=== PATIENT | female | born 1960 | race Caucasian/White ===

== ENCOUNTER → 2016-07-12 | Outpatient (CLI) | payer BC, OTHER ==
[~2016-07-12] VITALS: Ht 162.6 cm; Wt 85.1 kg
[~2016-07-12] MED LIST: ABILIFY 5 MG TAB5 MG PO; ADDERALL XR 2020 MG PO; DEXILANT60 MG PO; DEXTROAMP-AMPHE30 MG PO; ESTRACE1 MG PO; FEMRING1 EACH VG; HYDROCODONE-APA1 TA1 PO; LEVOTHYROXIN0.112 M1 PO; NAPROSYN500 MG PO; PROZAC20 MG PO; REQUIP 1 MG TABL1 M1 PO; TRAMADOL 50 MG50 MG PO; TRAZODONE HCL100 MG PO; TRICOR145 MG PO; ZOFRAN ODT4 MG DISSOLVE; ZOMIG5 MG PO
--- NOTE | ~2016-07-12 | HPC ---
[facility] [address] [place] [address] PAIN MANAGEMENT CONSULTATION Name: LUANA JORDAN Room #: REG HETAL Mariia#: [id number] Admission: 07/12/16 Attend Phys: Obie Spencer DO Discharge: Date of : 62 Report #: [id number] THIS REPORT FOR: //name// CC: Sebastian Spencer DATE OF SERVICE: 07/12/2016 The patient is a very pleasant 55-year-old female, prior seen in consultation of 10/27/2015. She was given a single epidural injection L5-S1 with near 100% relief for about 6 months. The patient notes back and left leg pain has recurred without antecedent trauma and overuse. Pain is in the posterior thigh down to the foot. Pain is exacerbated with standing, bending and walking. PHYSICAL EXAMINATION: Shows pleasant 55-year-old female. Vital signs stable as noted in the EMR. Rises from chair using armrest. Modestly antalgic gait favoring the left leg. Positive straight leg raise on the left with decreased plantar flexion and lower extremity extension strength. ASSESSMENT: Symptomatic lumbar radiculopathy in a patient with prior history of gastroesophageal reflux, anxiety and depression. She has tolerated Naprosyn well in the past. I have elected to renew prescription for Naprosyn 500 mg b.i.d. We will do a short course of hydrocodone 7.5/325, limit 45 tablets. RECOMMENDATIONS: Fluoroscopic guided epidural injection L5-S1. Follow up simply as needed. PROCEDURE: Lumbar epidural injection under fluoroscopy. ASSESSMENT: Symptomatic lumbar radiculopathy. PROCEDURE: Lumbar epidural steroid injection. PROCEDURE NOTE: After both written and informed consent to include risk of spinal cord damage, increased pain, weakness and dural puncture, the patient was taken to the fluoroscopy suite, placed in the prone position. After sterile prep and drape, a skin wheal with lidocaine was raised. A 22-gauge epidural Tuohy needle was inserted in the midline at L5-S1 with good loss to resistance. Negative aspiration for cerebrospinal fluid or blood was noted. Then 1 mL of Omnipaque under biplanar fluoroscopy showed good spread within the epidural space. This was followed with 80 mg of triamcinolone plus 1 mL of 1.5% preservative-free Xylocaine, 0.5 mL Xylocaine was then injected to flush the [address] [address] PAIN MANAGEMENT CONSULTATION Name: NIKKI JORDANODY Room #: REG [facility] Mariia#: [id number] Admission: 07/12/16 Attend Phys: Obie Spencer DO Discharge: Date of : 62 Report #: [id number] needle; it was removed. The patient was monitored for an appropriate period of time and discharged in good and stable condition. <ELECTRONICALLY SIGNED> By: Obie Spencer DO 07/13/16 0904 1202 1330 Obie Spencer DO /nt
[2016-07-12 11:06] VITALS: BP 122/81
== END | disposition home or self-care (01) ==
LOC: PAIN 07:16
DX: M54.16 Radiculopathy, lumbar region (principal); K21.9 Gastro-esophageal reflux disease without esophagitis; F41.9 Anxiety disorder, unspecified; F32.9 Major depressive disorder, single episode, unspecified

== ENCOUNTER → 2016-11-01 | Outpatient (CLI) | payer BC, OTHER ==
[~2016-11-01] VITALS: Ht 162.6 cm; Wt 82.0 kg
--- NOTE | ~2016-11-01 | HPC ---
[facility] [place] [address] [place] [address] PAIN MANAGEMENT CONSULTATION Name: LUANA JORDAN Room #: REG ANGELOYimi Valencia.#: [id number] Admission: 11/01/16 Attend Phys: Obie Spencer DO Discharge: Date of : 62 Report #: [id number] THIS REPORT FOR: //name// CC: Greg Spencer The patient is a 55-year-old female, prior seen in the pain clinic back in June for symptomatic lumbar radiculopathy, had L5-S1 epidural injection with dramatic improvement in baseline pain, in fact, the patient notes she had 90% relief for 3 months, pain has begun to recur. Pain is primarily low back, pressure, aching with pain exacerbated with standing, walking and carrying her grandchildren. PHYSICAL EXAMINATION: Shows a 55-year-old female, BMI is 31 kilograms per meter squared. Vital signs stable as noted in the EMR. Rises from chair using armrest. Modestly antalgic gait. Diffuse tenderness across the low back, posterior thighs. Positive straight leg raise bilaterally. ASSESSMENT: Symptomatic lumbar radiculopathy by clinical exam and history. RECOMMENDATION: 1. Hydrocodone 7.5/325, prescription renewed. Dispensed 45 tablets 1 q. 4-6 hours as needed for pain. 2. Lumbar epidural injection under fluoroscopy. PROCEDURE: Lumbar epidural steroid injection. PROCEDURE NOTE: After both written and informed consent to include risk of spinal cord damage, increased pain, weakness and dural puncture, the patient was taken to the fluoroscopy suite, placed in the prone position. After sterile prep and drape, a skin wheal with lidocaine was raised. A 22-gauge epidural Tuohy needle was inserted in the midline at L5-S1 with good loss to resistance. Negative aspiration for cerebrospinal fluid or blood was noted. Then 1 mL of Omnipaque under biplanar fluoroscopy showed good spread within the epidural space. This was followed with 80 mg of triamcinolone plus 1 mL of 1.5% preservative-free Xylocaine, 0.5 mL Xylocaine was then injected to flush the needle; it was removed. The patient was monitored for an appropriate period of time and discharged in good and stable condition. <ELECTRONICALLY SIGNED> By: Obie Spencer DO 11/02/16 0837 [id number] [id number] Obie Spencer DO /nt
[2016-11-01 10:31] VITALS: BP 101/70
== END | disposition home or self-care (01) ==
LOC: PAIN 07:13
DX: M54.16 Radiculopathy, lumbar region (principal)

== ENCOUNTER → 2017-01-10 | Outpatient (CLI) | payer BC, OTHER ==
[~2017-01-10] VITALS: Ht 162.6 cm; Wt 82.2 kg
[~2017-01-10] MED LIST changes: +MEDROLDOSEPACK PO; +PROZAC10 MG PO
--- NOTE | ~2017-01-10 | HPC ---
[facility] [place] [place] [address] PAIN MANAGEMENT CONSULTATION Name: LUANA JORDAN Room #: REG HETAL Chiang#: [id number] Admission: 01/10/17 Attend Phys: Obie Spencer DO Discharge: Date of : 62 Report #: [id number] THIS REPORT FOR: //name// CC: Greg Spencer HISTORY OF PRESENT ILLNESS: The patient is a pleasant 56-year-old female I have treated for symptomatic lumbar radiculopathy for about the past year. She was initially seen on 10/27/2015, given a lumbar epidural injection at L5-S1. This afforded near 100% relief for 5-6 months, lifting her twin grandchildren exacerbated low back and left leg pain. She was seen in followup on 07/12/2016, we repeated an L5-S1 epidural injection. Again, this afforded near 90% relief for about 3 months, pain began to recur, I saw her on 11/01/2016. Repeated an L5-S1 epidural injection at that time, although a little more modest relief at that time, perhaps 50% relief for 6 weeks, but she also had acute exacerbation of pain several weeks ago, acute pain left leg, pulling sensation in the low abdomen. She denies bowel or bladder continence changes, but does have a little saddle anesthesia with paresthesia going into the left thigh and groin as well as the perineal area. She sought emergency care, MRI was accomplished. She had an injection of Toradol and a Medrol Dosepak. She has an appointment to see Dr. Barnes for consideration for decompressive laminectomy, unfortunately that appointment is not available till about 4 weeks (02/10/2017). We reviewed the patient's MRI from 01/09/2017, findings note advanced degenerative arthropathy at L4-L5, prominent dorsal epidural fat at this level resulting in trefoil-type central canal narrowing, more concerningly at L5-S1 there is a local left subarticular disk protrusion resulting in moderate left lateral recess narrowing with contact of the descending left S1 nerve root. PHYSICAL EXAMINATION: Shows 56-year-old female; alert and oriented to person, place, and time; judged to be a reasonable historian. Vital signs are stable as noted in the EMR. Subjective pain score is 7 VAS. Notes pain is exacerbated with walking or carrying her grandbabies. Does have modestly antalgic gait, positive straight leg raise on the left at 30 degrees, though it is somewhat moderate. Lower extremity strength, slight decreased left plantar flexion strength. Diffuse lumbar pain. ASSESSMENT: Symptomatic lumbar radiculopathy with acute exacerbation of left L5-S1 radicular pain. RECOMMENDATIONS: 1. Continue current medications including rare use of Oxycodone for pain. 2. Follow up with back surgeon at January. 3. Epidural injection under fluoroscopy today to help with acute radicular symptoms and some early weakness in that left L5-S1 pattern. I will be happy to see the patient as needed for medication management. [address] [address] PAIN MANAGEMENT CONSULTATION Name: NIKKI JORDANODY Room #: NAILA Chiang#: [id number] Admission: 01/10/17 Attend Phys: Obie Spencer DO Discharge: Date of : 62 Report #: [id number] PROCEDURE: Lumbar epidural injection under fluoroscopy at L5-S1. PROCEDURE NOTE: After both written and informed consent to include risk of spinal cord damage, increased pain, weakness and dural puncture, the patient was taken to the fluoroscopy suite, placed in the prone position. After sterile prep and drape, a skin wheal with lidocaine was raised. A 22-gauge epidural Tuohy needle was inserted in the midline at L5-S1 with good loss to resistance. Negative aspiration for cerebrospinal fluid or blood was noted. Then 1 mL of Omnipaque under biplanar fluoroscopy showed good spread within the epidural space. This was followed with 80 mg of triamcinolone plus 1 mL of 1.5% preservative-free Xylocaine, 0.5 mL Xylocaine was then injected to flush the needle; it was removed. The patient was monitored for an appropriate period of time and discharged in good and stable condition. <ELECTRONICALLY SIGNED> By: Obie Spencer DO 01/11/17 1202 1536 2113 Obie Spencer DO /nt
[2017-01-10 14:13] VITALS: BP 109/83
== END | disposition home or self-care (01) ==
LOC: PAIN 07:34
DX: M54.16 Radiculopathy, lumbar region (principal); Z98.890 Other specified postprocedural states; Z88.8 Allergy status to other drugs, medicaments and biological substances

== ENCOUNTER → 2018-08-27 | Outpatient (CLI) | payer BC, OTHER ==
[~2018-08-27] VITALS: Ht 162.6 cm; Wt 88.7 kg
[~2018-08-27] MED LIST changes: +CARDESARTAN PO; +FLEXERIL PO; +HYDROCHLOROTH12.5 M1 PO; +LYRICA 75 MG CA75 MG PO; +METFORMIN HCL500 MG PO; +PERCOCET 7.5-31 EACH PO; +PREMARIN0.625 MG PO; +PROTONIX40 M1 PO
[2018-08-27 08:32] VITALS: BP 130/80
--- NOTE | 2018-08-27 08:42 | NUR ---
Pain Clinic Assessment: 1. History of Osteoarthritis: NO History of Rheumatoid Arthritis: NO 2. Height: 5 ft. 4 in. 162.6 cm. Weight: 195.6 lb. oz. 88.724 kg. Patient's BMI: 33.6 3. Vital Signs: BP: 130/80 Pulse: 97 Resp: 16 Temp: 02 Sat: 100 ECG Mon: 4. Pain Intensity: 4 5. Fall Risk: Dizziness: N Needs help standing or walking: N Fallen in the last 3 months: N Fall risk comments: 6. Patient on Blood Thinner: None 7. History of Hypertension: Y 8. Opioid Therapy greater than 6 weeks: N Opiate Contract Signed: 9. Risk Assessment Tool Provided: LOW RISK / 10. Functional Assessment Tool: 11. Recreational Drug Use: Never Drug Type: Tobacco Use: Never Smoker Tobacco Type: Amount or Packs/day: How Many Years: Alcohol Use: No Frequency: Quant:
--- NOTE | 2018-09-02 07:50 | HPC ---
[facility] [place] [address] PAIN MANAGEMENT CONSULTATION Name: LUANA JORDAN Room #: REG HETAL ChandaCyndi.#: [id number] Admission: 08/27/18 ������������������ Attend Phys: Giacomo Spencer DO Discharge: ������������������ Date of : 62 Report #: [id number] THIS REPORT FOR: //name// CC: Vj Monroe DATE OF SERVICE: 08/27/2018 CHIEF COMPLAINT: Low back pain, left lower extremity pain and paresthesias. HISTORY OF PRESENT ILLNESS: As you know, the patient is a 57-year-old female who was seen by [facility] in the past undergoing epidural injections ultimately undergoing surgery due to the lack of efficacy with the injections. She has been lost to followup visits since her last visit of 01/10/2017. She returns today in followup visit per the request of her neurosurgeon to trial an injection in the hopes of improving overall pain. The patient has had fusion from L4 through S1 per her report. She has been referred back to our clinic to determine if injections could be helpful by her neurosurgeon, Dr. Roberth Whitlock who saw the patient only days ago. She has been referred back to our clinic to trial a caudal epidural injection in hopes of improving pain and discuss whether or not her symptoms are related to SI joint dysfunction. ALLERGIES: COMPAZINE, CODEINE, SIMVASTATIN, PROMETHAZINE AND ATORVASTATIN. CURRENT MEDICATIONS: Cyclobenzaprine, oxycodone, metformin, pregabalin, estrogen, pantoprazole, candesartan, hydrochlorothiazide, fluoxetine, ondansetron, Adderall, Zomig, fenofibrate, Dexilant, trazodone, aripiprazole, levothyroxine and ropinirole SOCIAL HISTORY: The patient reports she is a nonsmoker. She denies IV or illicit drug use. She partakes in an occasional alcoholic beverage. She is working, but participates in no exercise program. She is unaccompanied today. IMAGING: MRI lumbar spine obtained on 04/25/2018 shows surgical changes of L4-L5 and L5-S1. Minimal facet changes throughout the lumbar region. No significant central canal stenosis. PHYSICAL EXAMINATION: VITAL SIGNS: Blood pressure 130/80, pulse is 97, respiratory rate 16 and unlabored. The patient is 100% on room air. Height 5 feet 4 inches tall and weight 195.6 pounds, BMI calculated 33.6. GENERAL: Well-developed, well-nourished, well-hydrated exogenously obese 57-year-old female, appears stated age, no acute distress, awake, alert and oriented x 3. Current pain score 4/10. [place] [address] PAIN MANAGEMENT CONSULTATION Name: LUANA JORDAN Room #: REG HETAL Chiang#: [id number] Admission: 08/27/18 ������������������ Attend Phys: Giacomo Spencer DO Discharge: ������������������ Date of : 62 Report #: [id number] HEENT: Normocephalic and atraumatic. Pupils are equal, round and reactive to light. Extraocular muscles are intact. Sclerae nonicteric without injection. NEUROLOGIC: Cranial nerves 2-12 are grossly intact. Speech fluent. The patient deemed a good historian. EXTREMITIES: Show no clubbing, no cyanosis and no edema. MUSCULOSKELETAL: Lower extremity strength equal and symmetrical 5/5. Deep tendon reflexes 2+/4. Ankle clonus is negative. Babinski is negative. Seated straight leg raising negative. Supine straight leg raising positive on the left. Zaria's test negative. Modified Gaenslen's positive for axial low back pain. Ankle clonus negative. Babinski is negative. There is minor tenderness to SI joint palpation bilaterally. ASSESSMENT: 1. Symptomatic lumbar radiculopathy. 2. Failed lumbar spine surgery. 3. Lumbar degeneration. 4. Sacroiliac joint pain. 5. Chronic intractable pain. PLAN: 1. The patient has been referred back to our clinic with reports of pain that began in the low back radiating all the way down the left leg to the foot. She, as you are aware, has had surgery at the L4-L5 and L5-S1 level. Recent imaging shows no significant interval changes since her last imaging study. There does not appear to be significant neural foraminal or central canal stenosis. The symptoms that the patient is experiencing does have a dermatomal distribution on the L5 nerve root, left-sided based on her distribution and discussion of pain. She does have some SI joint dysfunction, but this is only mild in nature. She has been referred back to our clinic to try injection therapy. We have discussed with the patient the other treatment options for her ongoing pain. The following was discussed with the patient today. We discussed physical therapy, stretching exercises, core strengthening and a concerted effort at weight loss. We discussed medication management adding neuropathic pain medications to her current dosing of opioid provided through her neurosurgeon. We discussed caudal epidural injection as a way to treat the ongoing pain the patient is experiencing. We also discussed the possibility of trialing SI joint injections though this does not correlate to the patient's distribution of symptoms today. We discussed possible surgical options. After reviewing the risks and benefits of all proposed treatment options and given the distribution of symptoms, the patient chose to undergo a caudal epidural injection. The patient was advised risks and benefits of a caudal epidural injection. These risks include but are not necessarily limited to bleeding, bruising, infection, worsening pain, no relief of pain, also risk of temporary or [facility] [address] [place] [address] PAIN MANAGEMENT CONSULTATION Name: LUANA JORDAN Room #: REG HETAL Mckee.Cyndi.#: [id number] Admission: 08/27/18 ������������������ Attend Phys: Giacomo Spencer DO Discharge: ������������������ Date of : 62 Report #: [id number] permanent muscle weakness, temporary or permanent nerve damage, possible paralysis and . The patient states understood and wished to proceed. 2. The patient has requested opioid medications be provided by our clinic indicating that her neurosurgeon says that we "must take over this writing." We have advised the patient at this time, we will not be involved in her opioid medication. At this point, we have yet to determine whether or not this is an appropriate or necessary treatment in this patient's case. She will need to continue her medication management through the prescribing physician. 3. We will see the patient back in followup visit in 31 days. At that time, review the efficacy of today's caudal epidural injection and determine if next in the series would be necessary or return to the neurosurgery team for evaluation and possible further treatment options. 4. We wish to thank Dr. Whitlock for the referral of the patient back to our clinic. We will keep you apprised response to treatment as we address her pain with interventional treatments. PROCEDURE NOTE DESCRIPTION OF PROCEDURE: Caudal epidural injection under fluoroscopic guidance. This is the first procedure of the first series that the patient is undergoing. After obtaining written consent, the patient was taken back to the fluoroscopy suite and placed in a prone position with a pillow under the abdomen to decrease the lumbar lordosis. The skin overlying the lumbosacral area was prepped and draped in an aseptic fashion. The sacral hiatus was identified with the aid of lateral fluoroscopy. The skin and subcutaneous tissue overlying the target site of injection was anesthetized using 3 mL of 1% lidocaine. A 22, 4-1/2 inch Touhy needle was then introduced into the epidural space via the sacral hiatus. Needle position in the sacral canal was verified by lateral view on fluoroscopy. A catheter was not used during this procedure. After negative aspiration for heme CSF, a total of 1 of Omnipaque was injected. A lumbosacral epidurogram was confirmed using AP and lateral fluoroscopy. After negative aspiration for heme or CSF, 5 mL of a solution containing 2 mL of 40 mg per mL, 80 mg total triamcinolone, 3 mL of lidocaine 1% was injected in increments. Contrast spread was noted within posterior epidural space. The needle was then retracted approximately residential and the needle track was flushed with 1 mL of 1% lidocaine. There were no apparent new sensory deficits in the lower extremities present following the procedure. A sterile bandage was placed over the injection site. There were no apparent complications. The patient tolerated the procedure well [address] [address] PAIN MANAGEMENT CONSULTATION Name: LUANA JORDAN Room #: NAILA Chiang#: [id number] Admission: 08/27/18 ������������������ Attend Phys: Giacomo Spencer DO Discharge: ������������������ Date of : 62 Report #: [id number] and was carefully escorted to the recovery room in stable condition. After meeting discharge criteria, the patient was discharged home. ��������������������������������������������� <ELECTRONICALLY SIGNED> ���������������������������������������� By: Giacomo Spencer DO ��������������������������������������������� 09/02/18 0750 1043 [id number] Giacomo Spencer DO /nt
== END | disposition home or self-care (01) ==
LOC: PAIN 06:51
DX: M51.16 Intervertebral disc disorders with radiculopathy, lumbar region (principal); G89.29 Other chronic pain; E66.9 Obesity, unspecified; Z79.899 Other long term (current) drug therapy; Z88.8 Allergy status to other drugs, medicaments and biological substances; Z79.84 Long term (current) use of oral hypoglycemic drugs; Z68.33 Body mass index [BMI] 33.0-33.9, adult